=== PATIENT | female | born 1985 | race African-American/Black ===

== ENCOUNTER 2018-12-27 06:17 | Emergency (ER) | payer SELFPAY ==
[~2018-12-27] VITALS: Ht 167.6 cm; Wt 54.9 kg
[2018-12-27 06:22] VITALS: BP 130/83; Ht 167.6 cm; Wt 54.9 kg
== END 2018-12-27 06:49 | disposition home or self-care (01) ==
LOC: ED 06:17
DX: K04.7 Periapical abscess without sinus (principal)